=== PATIENT | female | born 2000 | race Caucasian/White ===

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

== ENCOUNTER 2022-03-17 07:06 | Day surgery (SDC) | payer OTHER ==
[~2022-03-17] VITALS: Ht 165.1 cm; Wt 58.6 kg
== END 2022-03-17 09:40 | disposition home or self-care (01) ==
LOC: ORSCSDS 07:06
PROVIDERS: Otolaryngology
PROC: 0CBPXZZ Excision of Tonsils, External Approach (ICD-10-PCS; principal; 2022-03-17 08:15)
DX: J35.01 Chronic tonsillitis (principal)
CPT/HCPCS: 88304; A9270; J1100; J2270; J2405; J2704; J3010; J7120